=== PATIENT | male | born 1940 | race African-American/Black ===

== ENCOUNTER → 2022-03-30 | Outpatient (CLI) | payer MEDICARE ==
[~2022-03-30] MED LIST: IOPAMIDOL 370 MG/ML 100 ML INFUS..BTL INJ ONE; SODIUM CHLORIDE 0.9% 100 ML ONE
[2022-03-30 12:43] LABS: CREATININE, SERUM 1.02 mg/dL (0.72-1.25)
== END ==
LOC: CT 11:47
PROVIDERS: ATTEND Internal Medicine
DX: R09.89 Other specified symptoms and signs involving the circulatory and respiratory systems (principal)
CPT/HCPCS: 36415; 70498; 82565; 84520; J7050; Q9967